=== PATIENT | male | born 1945 ===

== ENCOUNTER 2020-12-08 14:15 | Inpatient (IN) ==
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
--- NOTE | 2020-12-08 14:43 | XRay Report ---
XR chest 1V portable HISTORY: 75 years-old Male Chest Pain acute atypical chest pain COMPARISON: None TECHNIQUE: Portable AP view of the chest FINDINGS: Cardiac silhouette is mildly enlarged. No pneumothorax, pleural effusion, airspace consolidation or o vert pulmonary edema. Spondylitic spurring of the spine. IMPRESSION: Cardiomegaly without acute process. ACT 112: Negative or not required by law. The above report was generated using voice recognition software. It may contain grammatical, syntax o r spelling errors. Electronically signed by: Elpidio Nunez M.D. 12/08/2020 2:42 PM
[2020-12-08] MEDS ORDERED: OPTIRAY 300 100mL IV ONE (14:46)
[2020-12-08 14:48] LABS: Basophils # (auto) 0.01 K/uL (0-0.2); Basophils % (auto) 0.2 %; Eosinophils # (auto) 0.08 K/uL (0-0.5); Eosinophils % (auto) 1.2 %; Hematocrit (blood only) 34.8 % (42-52); Hemoglobin 11.8 g/dL (14.0-18.0); Immature Granulocytes # (auto) 0.02 K/uL (0.00-0.02); Immature Granulocytes % (auto) 0.3 %; Lymphocytes # (auto) 1.27 K/uL (1.2-3.4); Lymphocytes % (auto) 19.2 %; Mean Corpuscular Hemoglobin 29.1 pg (25-34); Mean Corpuscular Hgb Conc 33.9 g/dL (32-36); Mean Corpuscular Volume 85.9 fL (80-100); Mean Platelet Volume 9.5 fL (7.4-10.4); Monocytes # (auto) 0.48 K/uL (0.11-0.59); Monocytes % (auto) 7.3 %; Neutrophils # (auto) 4.74 K/uL (1.4-6.5); Neutrophils % (auto) 71.8 %; Platelet Count 197 K/uL (130-400); RDW Coefficient of Variation 14.8 % (11.5-14.5); RDW Standard Deviation 46.5 fL (36.4-46.3); Red Blood Count 4.05 M/uL (4.7-6.1)
[2020-12-08] MEDS ORDERED: NALOXONE HCL 0.4 MG/1 ML VIAL/CARP IV STA ×2 (14:53→15:43)
[2020-12-08 14:55] LABS: INR 1.1 (0.9-1.1); Partial Thromboplastin Ratio 0.9; Partial Thromboplastin Time 24.7 Seconds (21.0-31.0); Prothrombin Time 11.1 Seconds (9.0-12.0)
[2020-12-08 14:59] LABS: Alanine Aminotransferase 17 U/L (12-78); Albumin Level 3.4 gm/dl (3.4-5.0); Aspartate Aminotransferase 17 U/L (15-37); BUN Creatinine Ratio 11.9 (10-20); Blood Urea Nitrogen 12 mg/dl (7-18); Calcium 8.7 mg/dl (8.5-10.1); Carbon Dioxide 28 mmol/L (21-32); Chloride 104 mmol/L (98-107); Creatinine Clr Calc Pharmacy 78.3 ml/min; Est GFR (African American) 88.3; Est GFR (Non-African American) 76.2; Glucose 117 mg/dl (70-99); Lipase 54 U/L (73-393); Potassium 3.6 mmol/L (3.5-5.1); Sodium 140 mmol/L (136-145)
[2020-12-08 15:01] LABS: Acetaminophen < 2 ug/ml (10-30); Salicylate < 1.7 mg/dl (2.8-20)
[2020-12-08 15:04] LABS: Alkaline Phosphatase 63 U/L (45-117); Globulin 3.5 gm/dl (2.5-4.0); Total Protein 6.9 gm/dl (6.4-8.2); Troponin I < 0.015 ng/ml (0-0.045)
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
[2020-12-08 15:17] LABS: Base Excess VBG -0.7 mEq/L; HCO3 VBG 28 mmol/L; PCO2 VBG 70 mmHg (38-50); PO2 VBG 29 mmHg; pH VBG 7.23 (7.36-7.41)
[2020-12-08 15:18] LABS: Oxygen Saturation VBG < 60.0 %
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
[2020-12-08 15:41] LABS: Amphetamines+Metham, Urine Neg (Neg); Barbiturates, Urine Neg (Neg); Benzodiazepine, Urine Neg (Neg); Cocaine, Urine Neg (Neg); MDMA (Ecstacy), Urine Neg (Neg); Methadone, Urine Pos (Neg); Opiate, Urine Pos (Neg); Phencyclidine, Urine Neg (Neg)
[2020-12-08 16:02] LABS: Influenza A virus by PCR Negative (Neg); Influenza B virus by PCR Negative (Neg); RSV by PCR Negative (Neg); SARS CoV2 RNA(COVID-19) InHosp NEGATIVE (Negative)
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
[2020-12-08] MEDS ORDERED: STAT IV Infusion **Titration per Protocol STA (16:40)
[2020-12-08] MEDS ORDERED: NALOXONE HCL 5 MG in 0.9 % SODIUM CHLORIDE 87.5 ML IV SCH (16:45)
[2020-12-08] MEDS ORDERED: NALOXONE HCL 0.4 MG/1 ML VIAL/CARP IV ONE (16:56)
[2020-12-08 17:09] LABS: Base Excess ABG 0.9 mEq/L (-9-1.8); HCO3 ABG 29 mmol/L (19-24); Oxygen Saturation ABG 94.8 % (90-95); PCO2 ABG 60 mmHg (35-46); PO2 ABG 77 mmHg (80-95)
[2020-12-08 17:11] LABS: Allen Test Pos (Pos)
[2020-12-08] MEDS ORDERED: ICU PROTOCOL FOR HYPERGLYCEMIA PRN (17:27)
[2020-12-08] MEDS ORDERED: NALOXONE HCL 0.4 MG/1 ML VIAL/CARP IV PRN (17:27)
[2020-12-08] MEDS ORDERED: hydrALAZINE HCL 20 MG/ML VIAL IV PRN (18:02)
[2020-12-08] MEDS ORDERED: hydrALAZINE HCL 20 MG/ML VIAL ONE (18:19)
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
[2020-12-08] MEDS: ONDANSETRON INJ 2 MG/ML 2 ML VIAL IV PRN (22:18)
--- NOTE | 2020-12-08 23:01 | Electrocardiogram Report ---
Test Reason : Blood Pressure : / mmHG Vent. Rate : 081 BPM Atrial Rate : 081 BPM P-R Int : 160 ms QRS Dur : 096 ms QT Int : 402 ms P-R-T Axes : 053 019 054 degrees QTc Int : 466 ms Normal sinus rhythm Normal ECG No previous ECGs available Confirmed by Jefferson Wilks ([id number]) on 12/08/2020 11:00:26 PM Referred By: REFERRED SELF Confirmed By:Jefferson Wilks
[2020-12-09] MEDS ORDERED: NALOXONE HCL 5 MG in 0.9 % SODIUM CHLORIDE 87.5 ML IV SCH (00:03)
[2020-12-09] MEDS: ONDANSETRON INJ 2 MG/ML 2 ML VIAL IV PRN ×2 (04:47→13:44)
[2020-12-09 04:58] LABS: Basophils # (auto) 0.01 K/uL (0-0.2); Basophils % (auto) 0.1 %; Eosinophils # (auto) 0.02 K/uL (0-0.5); Eosinophils % (auto) 0.3 %; Hematocrit (blood only) 35.8 % (42-52); Hemoglobin 12.2 g/dL (14.0-18.0); Immature Granulocytes # (auto) 0.01 K/uL (0.00-0.02); Immature Granulocytes % (auto) 0.1 %; Lymphocytes # (auto) 1.04 K/uL (1.2-3.4); Lymphocytes % (auto) 14.7 %; Mean Corpuscular Hemoglobin 29.1 pg (25-34); Mean Corpuscular Hgb Conc 34.1 g/dL (32-36); Mean Corpuscular Volume 85.4 fL (80-100); Mean Platelet Volume 9.2 fL (7.4-10.4); Monocytes # (auto) 0.53 K/uL (0.11-0.59); Monocytes % (auto) 7.5 %; Neutrophils # (auto) 5.45 K/uL (1.4-6.5); Neutrophils % (auto) 77.3 %; Platelet Count 195 K/uL (130-400); RDW Coefficient of Variation 14.9 % (11.5-14.5); RDW Standard Deviation 47.3 fL (36.4-46.3); Red Blood Count 4.19 M/uL (4.7-6.1); White Blood Count 7.06 K/uL (4.8-10.8)
[2020-12-09 05:25] LABS: Albumin Level 3.2 gm/dl (3.4-5.0); BUN Creatinine Ratio 12.9 (10-20); Calcium 8.2 mg/dl (8.5-10.1); Est GFR (African American) 100.7; Est GFR (Non-African American) 86.9; Potassium 3.9 mmol/L (3.5-5.1)
[2020-12-09 05:28] LABS: Bilirubin,Total 1.1 mg/dl (0.2-1); Globulin 3.3 gm/dl (2.5-4.0); Total Protein 6.5 gm/dl (6.4-8.2)
--- NOTE | 2020-12-09 07:15 | Hospitalist Progress Note ---
Date of Service December 09, 2020 Assessment & Plan (1) Altered mental status: Urine toxicology positive for methadone and opiates however patient does not admit to taking either. Low respiratory rate in the emergency room responded to Narcan. Possible concussion and opiate use is the cause of his confusion. Vomiting the afternoon of 12/09 supports concussion as a possible diagnosis does not remit will repeat CT scan of his head initial CT scan was negative Initially patient was placed in the ICU for continued Narcan infusion his lethargy is since resolved (2) Hypertension: Continue lisinopril 40 mg p.o. daily (3) Dyslipidemia: Continue atorvastatin 20 mg p.o. daily (4) Acute respiratory acidosis: Resolved (5) CO2 retention: Resolved Admission and Anticipated Discharge Date Admission Date: December 08, 2020 Subjective Patient was awake and alert at the time I saw him he denied pain later in the afternoon he developed vomiting. Patient is slightly cautious about disclosing the exact nature of his trip. Likewise he now has no mode of transportation and is still unclear about where he wants to go as his home address is [place] he says he was driving [place] and he came from [place]. He denies having significant rib pain he was transferred to the ICU Case management is currently working on a disposition for him Review of Systems Review of Systems: Mild distress and fatigue no headache, blurry or double vision no speech or swallowing issues no chest pain, pressure or palpitations no shortness of breath, cough or wheezes no abdominal pain, later in the afternoon developed nausea and vomiting no dysuria, hematuria or frequency no focal joint pain or swelling no back pain, CVA tenderness or radicular pain no bruising, bleeding or rashes no focal signs of weakness or numbness or altered sensation no complaints of anxiety or depression.. Physical Exam Physical Exam: The patient appeared well nourished and normally developed. Vital signs as documented. Head exam is normocephalic atraumatic no scleral icterus Neck is without JVD, thyromegaly, or carotid bruits. Lungs are clear to auscultation, no focal loss of breath sounds Cardiac exam, Rhythm is regular.. No murmurs, rubs or gallops. Abdominal exam reveals normal bowel sounds, soft non tender, no masses Extremities are nonedematous and both pedal pulses are present Neurologic exam is alert and oriented, he is cautious and suspicious not volunteering much information no focal loss of strength or sensation Skin is without bruises or rashes Psychologically is without concerns for anxiety or depression Results & Data Results & Data ([facility]) Vital Signs (Past 12 Hours) Vital Signs Temp Pulse Resp BP Pulse Ox 12/09/20 06:00 62 91 12/09/20 05:58 61 137/66 94 12/09/20 05:28 64 143/73 H 92 12/09/20 04:28 53 L 116/61 94 12/09/20 03:58 63 152/75 H 96 12/09/20 03:40 98.1 F 12/09/20 03:28 62 148/79 H 97 12/09/20 02:58 64 142/98 H 96 12/09/20 02:28 66 147/81 H 92 12/09/20 01:59 68 158/82 H 97 12/09/20 01:28 54 L 134/68 97 12/09/20 00:58 62 139/69 93 12/09/20 00:28 58 L 135/73 96 12/09/20 00:00 99.0 F 12/08/20 23:59 68 159/72 H 94 12/08/20 23:28 52 L 125/67 97 12/08/20 23:05 59 L 12/08/20 22:58 61 143/92 H 98 12/08/20 21:58 50 L 151/75 H 99 12/08/20 20:58 58 L 159/89 H 99 12/08/20 20:50 59 L 100 12/08/20 20:28 60 13 151/79 H 98 12/08/20 19:47 98.1 F 12/08/20 19:28 58 L 14 149/84 H 99 PG Care Time/CCT Total # of Minutes Spent Total Time Spent with Patient: Total time spent is greater than 50% in coordination of care (as documented) at patient's floor/unit and/or counseling patient: Coding Level of Care Code 28404 Subseq Hosp Care Lvl 2 Diagnoses Altered mental status R41.82 Altered mental status type: unspecified Hypertension I10 Hypertension type: unspecified Dyslipidemia E78.5 Acute respiratory acidosis E87.2 CO2 retention E87.2 (1) Altered mental status Altered mental status type: unspecified Qualified Code(s): R41.82 - Altered mental status, unspecified (2) Hypertension Hypertension type: unspecified Qualified Code(s): I10 - Essential (primary) hypertension
[2020-12-09] MEDS: lisinopril 40 MG TAB PO SCH (08:01)
[2020-12-09] MEDS: ATORVASTATIN 20 MG TAB PO SCH (08:01)
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
[2020-12-09 09:29] LABS: iSTAT Hemoglobin 12.6 g/dl (14.0-18.0); iSTAT Ionized Calcium 1.22 mmol/l (1.12-1.32); iSTAT Potassium 3.7 mmol/L (3.3-5.0)
[2020-12-09] MEDS ORDERED: PROMETHAZINE HCL 12.5 MG in SODIUM CHLORIDE 0.9% 50 ML IV PRN (15:01)
[2020-12-09] MEDS ORDERED: PROMETHAZINE HCL 12.5 MG in SODIUM CHLORIDE 0.9% 50 ML IV STA (15:01)
[2020-12-09] MEDS: ACETAMINOPHEN 325 MG TAB PO PRN (19:41)
[2020-12-10] MEDS: lisinopril 40 MG TAB PO SCH (08:23)
[2020-12-10] MEDS: ATORVASTATIN 20 MG TAB PO SCH (08:23)
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
[2020-12-10] MEDS: ACETAMINOPHEN 325 MG TAB PO PRN (15:09)
[2020-12-11 04:37] LABS: Codeine Urine 129 ng/mL (<50); Hydrocodone Urine NEGATIVE ng/mL (<50); Hydromor Urine NEGATIVE ng/mL (<50); Methadone, Ur Metabolite 8100 ng/mL (<100); Morphine Urine 6820 ng/mL (<50); Norhydrocodone Conf Ur NEGATIVE ng/mL (<50); Noroxycodone Urine NEGATIVE ng/mL (<50); Oxycodone Urine NEGATIVE ng/mL (<50); Oxymorph Urine NEGATIVE ng/mL (<50)
== END 2020-12-10 15:35 | disposition home or self-care (01) | DRG 947 ==
LOC: ED 14:15 → SUATTDRO 16:47 → 1E 16:47 → 3N 12-09 11:23